=== PATIENT | female | born 1940 | race Caucasian/White ===

== ENCOUNTER → 2023-10-12 09:38 | Outpatient (REF) | payer MEDICARE, OTHER, SELFPAY ==
[2023-10-12 11:57] LABS: ALT (SGPT) 15 U/L (0-35); AST (SGOT) 24 U/L (14-36); Albumin 3.7 g/dl (3.5-5.0); Alkaline Phosphatase 85 U/L (38-126); Blood Urea Nitrogen 19 mg/dl (7-17); Carbon Dioxide 27 mmol/L (22-30); Chloride 106 mmol/L (98-107); Glucose 84 mg/dl (70-99); Magnesium 2.2 mg/dl (1.6-2.3); Potassium 4.1 mmol/L (3.5-5.1); Sodium 138 mmol/L (135-145); Total Bilirubin 0.5 mg/dl (0.2-1.3); Total Protein 7.4 g/dl (6.3-8.2); eGFR > 60.00
[2023-10-12 12:19] LABS: Vitamin D, 25-OH*** 32.4 ng/mL (30-80)
[2023-10-12 14:32] LABS: Vitamin B12 679 pg/ml (239-931)
[2023-10-14 23:29] LABS: Vitamin B6 Results 71.9 nmol/L (20.0-125.0)
== END ==
LOC: OLABN 09:38
PROVIDERS: ATTENDING PHYSICIAN Student in an Organized Health Care Education/Training Program
DX: E78.5 Hyperlipidemia, unspecified (principal); Z79.899 Other long term (current) drug therapy; D51.9 Vitamin B12 deficiency anemia, unspecified; E67.2 Megavitamin-B6 syndrome
CPT/HCPCS: 36415; 80053; 82306; 82607; 83735; 84207

== ENCOUNTER → 2024-11-14 09:46 | Outpatient (REF) | payer MEDICARE, OTHER, SELFPAY ==
[2024-11-14 12:57] LABS: % Basophils 0.5 % (0-2); % Eosinophils 1.6 % (0-6); % Immature Granulocytes 0.3 % (0-0.5); % Lymphocytes 32.7 % (20.5-51.1); % Monocytes 7.5 % (1.7-9.3); % Neutrophils 57.4 % (42.2-75.2); Absolute Eosinophils 0.1 10^3/uL (0-0.7); Absolute Monocytes 0.5 10^3/uL (0.1-0.6); Absolute Neutrophils 3.6 10^3/uL (1.4-6.5); Hematocrit 34.1 % (37.0-47.0); Hemoglobin 10.7 g/dL (12.0-16.0); Mean Corp Hgb Conc. 31.4 g/dL (33.0-37.0); Mean Corpuscular Hgb 29.7 pg (27.0-31.0); Mean Corpuscular Volume 94.7 fL (81.0-99.0); Mean Platelet Volume 10.4 fL (7.4-10.4); Nucleated Red Blood Cells % 0 %; Platelet Count 274 10^3/uL (130-400); Red Cell Dist. Width 13.8 % (11.5-14.5); White Blood Cell Count 6.2 10^3/uL (4.8-10.8)
[2024-11-14 13:24] LABS: ALT (SGPT) 11 U/L (0-35); AST (SGOT) 21 U/L (14-36); Albumin 3.5 g/dl (3.5-5.0); Alkaline Phosphatase 77 U/L (38-126); Blood Urea Nitrogen 14 mg/dl (7-17); Calcium 9.1 mg/dl (8.4-10.2); Carbon Dioxide 29 mmol/L (22-30); Chloride 106 mmol/L (98-107); Glucose 82 mg/dl (70-99); HDL Cholesterol 55 mg/dl; LDL Cholesterol, Calculated 94 mg/dl; Magnesium 2.1 mg/dl (1.6-2.3); Potassium 4.1 mmol/L (3.5-5.1); Sodium 140 mmol/L (135-145); Total Bilirubin 0.3 mg/dl (0.2-1.3); Total Cholesterol 172 mg/dl (50-199); Total Protein 7.1 g/dl (6.3-8.2); Triglyceride 117 mg/dl (10-149); Very Low Density Lipoprotein 23 mg/dl (0-30); eGFR > 60.00
[2024-11-14 13:41] LABS: Vitamin D, 25-OH*** 20.5 ng/mL (30-80)
[2024-11-14 14:50] LABS: Vitamin B12 283 pg/ml (239-931)
== END ==
LOC: OLABN 09:46
PROVIDERS: ATTENDING PHYSICIAN Student in an Organized Health Care Education/Training Program
DX: E78.5 Hyperlipidemia, unspecified (principal); E03.9 Hypothyroidism, unspecified; R05.9 Cough, unspecified; D51.9 Vitamin B12 deficiency anemia, unspecified; E53.1 Pyridoxine deficiency; Z79.899 Other long term (current) drug therapy
CPT/HCPCS: 36415; 80053; 80061; 82306; 82607; 83735; 84207; 85025

== ENCOUNTER → 2025-01-10 09:31 | Outpatient (REF) | payer MEDICARE, OTHER, SELFPAY ==
[2025-01-10 11:59] LABS: Vitamin D, 25-OH*** 46.3 ng/mL (30-80)
== END ==
LOC: OLABN 09:31
PROVIDERS: ATTENDING PHYSICIAN Student in an Organized Health Care Education/Training Program
DX: E55.9 Vitamin D deficiency, unspecified (principal)
CPT/HCPCS: 36415; 82306

== ENCOUNTER 2025-02-18 21:16 | Inpatient (IN) | payer MEDICARE, OTHER, SELFPAY ==
[2025-02-18] VITALS (26 sets, daily range): BP systolic 94–148; BP diastolic 43–74; BMI 23.2; BMI 22.7
[2025-02-18 18:03] LABS: % Basophils 0.2 % (0-2); % Eosinophils 0.6 % (0-6); % Immature Granulocytes 0.2 % (0-0.5); % Lymphocytes 25.2 % (20.5-51.1); % Monocytes 4.7 % (1.7-9.3); % Neutrophils 69.1 % (42.2-75.2); Absolute Eosinophils 0.1 10^3/uL (0-0.7); Absolute Lymphocytes 3.3 10^3/uL (1.2-3.4); Absolute Monocytes 0.6 10^3/uL (0.1-0.6); Absolute Neutrophils 8.9 10^3/uL (1.4-6.5); Hematocrit 36.7 % (37.0-47.0); Hemoglobin 11.8 g/dL (12.0-16.0); Mean Corp Hgb Conc. 32.2 g/dL (33.0-37.0); Mean Corpuscular Hgb 30.5 pg (27.0-31.0); Mean Corpuscular Volume 94.8 fL (81.0-99.0); Nucleated Red Blood Cells % 0 %; Platelet Count 330 10^3/uL (130-400); Red Blood Cell Count 3.87 10^6/uL (4.20-5.40); White Blood Cell Count 12.9 10^3/uL (4.8-10.8)
[2025-02-18] MEDS: NSS 1000 IV ×2 (18:11→23:27)
--- NOTE | 2025-02-18 18:16 | ED.GENMED ---
History of Present Illness
General
Chief Complaint: Blood Pressure Problem
Time Seen by Provider: 02/18/25 17:53
History of Present Illness
History of Present Illness:
84-year-old female with history of hypertension presenting to the emergency department from her nursing facility with acute onset of nausea, vomiting, diarrhea. Patient had a syncopal episode at the nursing facility, witnessed. When patient woke
up, she was vomiting and had diarrhea. Per medics, hypotensive en route, administered 600 cc of fluid. Patient also received 8 mg of Zofran en route. Patient notes some lower abdominal pain. Reports she felt fine prior to onset of symptoms.
Denies significant chest pain or difficulty breathing denies any history of abdominal surgeries. Denies any known fever. Denies additional acute medical complaints
Past History
Past History
ED Past Medical History: HTN and Hypercholesterolemia
ED Past Surgical History: Orthopedic (Right hip replacement)
Social History
Tobacco: Non-smoker
Phy Exam
Physical Exam
Physical Exam:
General: Dry mucous membrane
HEENT: protecting airway
Neck: appears supple
CV: Normal heart rate, regular rhythm
Resp: No accessory muscle use, no increased work of breathing, lungs clear to auscultation bilaterally
Abd: Mild distention with generalized tenderness to lower abdomen
Extremities: No deformities, no swelling, no erythema
Neuro: alert, no focal neurologic deficit
: deferred
Rectal: deferred
Psych: Normal affect
Skin: Intact
Sepsis
Sepsis Screening
Sepsis Assessment: Severe Sepsis
Sepsis Screening: Hypotension
Sepsis Screen
Sepsis Screen: Severe Sepsis
Date: 02/18/25
Time: 19:35
Course
Orders/Labs/Results
Orders:
Orders
02/18/25 17:45
Electrocardiogram (*1) Urgent
Reason for Study: Abdominal Pain
EKG- Treatment ONCE
Straight cath- Treatment ONCE
Urinalysis Reflex To Culture Urgent
Date Specimen was Collected: 02/18/25
Time Specimen was Collected: 17:45
02/18/25 17:48
Complete Blood Count/With Diff Urgent
Comprehensive Metabolic Panel Urgent
Lipase Urgent
02/18/25 17:50
0.9% Sodium Chloride 1000 ml [Nss] 1,000 ml IV BOLUS
02/18/25 17:51
CT Abd/pelvis W Iv Cont Urgent
Comment:
Reason For Exam: lower abd pain, hypotension, diarrhea
02/18/25 17:57
Lactate Level [Lactic Acid] Urgent
Blood Culture Q30M
ALIYA Source: Blood/Venous
Specimen Description:
02/18/25 18:14
Fentanyl Citrate/Pf [Sublimaze] 50 mcg IV NOW STA
02/18/25 19:17
Blood Culture Q30M
ALIYA Source: Blood/Venous
Specimen Description:
C DIFF [C difficile Antigen & Toxins] Urgent
ALIYA Source: Feces/Stool
Specimen Description:
Date Specimen was Collected: 02/18/25
Time Specimen was Collected: 18:52
Stool Culture Urgent
ALIYA Source: Feces/Stool
Specimen Description:
Date Specimen was Collected: 02/18/25
Time Specimen was Collected: 18:52
02/18/25 19:32
Zosyn 4.5 grams IVPB NOW Piperacillin/Tazo 4.5 Gram [Zosyn] 4.5 gram in 100 ml IV NOW
Abnormal Lab Results
02/18/25
17:48
WBC 12.9 H 10^3/uL
(4.8-10.8)
RBC 3.87 L 10^6/uL
(4.20-5.40)
Hgb 11.8 L g/dL
(12.0-16.0)
Hct 36.7 L %
(37.0-47.0)
MCHC 32.2 L g/dL
(33.0-37.0)
Absolute Neuts (auto) 8.9 H 10^3/uL
(1.4-6.5)
Chloride 109 H mmol/L
(98-107)
BUN 22 H mg/dl
(7-17)
Glucose 111 H mg/dl
(70-99)
Total Protein 8.5 H g/dl
(6.3-8.2)
Lipase 391 H U/L
(23-300)
02/18/25 17:48
02/18/25 17:48
Vital Signs
Initial and Last Documented VS:
Initial Vital Signs
Temp Pulse Resp BP Pulse Ox
99.1 F 94 18 112/72 99
02/18/25 17:38 02/18/25 17:38 02/18/25 17:38 02/18/25 17:38 02/18/25 17:38
Last Documented Vital Signs
Temp Pulse Resp BP Pulse Ox
99.1 F 87 16 112/45 99
02/18/25 17:38 02/18/25 19:09 02/18/25 19:09 02/18/25 19:09 02/18/25 19:09
MDM/Problems Addressed
MDM/Problems Addressed:
84-year-old female with history of hypertension presenting to the emergency department for syncopal episode with vomiting, diarrhea, abdominal pain. Vital signs on arrival significant for hypotension.
On exam patient is in no acute distress, is alert, however is uncomfortable secondary to pain. Generalized tenderness to the abdomen with concern for acute intra-abdominal process such as diverticulitis versus colitis such as (C. difficile colitis
with very foul smelling stool), versus bowel obstruction with overflow incontinence. Suspect that syncopal episode was from hypotension, possible vasovagal etiology. For hypotension, starting IV fluids. Will obtain laboratory analysis and CT
imaging of the abdomen. EKG obtained, nonischemic, no arrhythmia. Patient currently doubt chest pain or concern for ACS.
19:30 - Labs show mild leukocytosis, however normal lactic acid. However in the setting of hypotension with leukocytosis, continued concern for septic process. Continuing IV fluids, fluid responsive. CT is concerning for stercoral colitis with
rectal impaction. There is also mention of pancolitis. Again in the setting of concern for sepsis and infectious source, starting patient on broad-spectrum antibiotics. C. difficile pending. Holding off on any disimpactions, patient is stooling
frequently. Plan for admission .
*Pulse Oximetry
SaO2: 99
Oxygen Mode of Delivery: Room air
*Critical Care Note
Total Time (30-74mins, 75-104mins- exclusive of procedures): 37
comment:
The high probability of a clinically significant, sudden or life threatening deterioration of the gastrointestinal system(s), severe sepsis required my full and direct attention, intervention and personal management. The aggregate critical care time
was 37 minutes. This time is in addition to time spent performing reported procedures but includes the following:
[x] Data Review and interpretation
[x] Patient assessment and monitoring of vital signs
[x] Documentation
[x] Medication orders and management
ED Attending Note
-
Portions of this chart may have been created with voice recognition software.� Occasional wrong word or��sound alike� substitutions may have occurred due to the inherent limitations of voice recognition software.
Discharge Plan
Departure
Prescriptions:
No Action
latanoprost 1 DROP drops
1 drp LEFT EYE HS
lisinopril 10 MG tablet
10 mg PO DAILY
multivitamin with folic acid [Tab-A-Gordon] 1 TABLET tablet
1 tab PO DAILY
acetaminophen 325 MG tablet
650 mg PO Q4HPRN PRN (Reason: mild pain/BABCOCK/temp> 100.4F) 0RF
lidocaine 4 % Adhesive Patch,Medicated
1 patch TOPICAL DAILYPRN PRN (Reason: right thigh)
lidocaine 4 % Cream
1 applic TOPICAL Q6HPRN PRN (Reason: b/l knees)
acetaminophen [Tylenol Extra Strength] 500 mg Tablet
1,000 mg PO DAILY
magnesium hydroxide [Milk of Magnesia] 400 mg/5 mL Suspension
2,400 mg PO HSPRN PRN (Reason: constipation)
bisacodyl [Dulcolax (bisacodyl)] 10 mg Suppository
10 mg WA [id number] PRN (Reason: if no bm aftr mom)
gabapentin 300 mg Capsule
300 mg PO BID
Eliquis 2.5 mg Tablet
2.5 mg PO BID
Referrals:
UNKNOWN - PT DOES,NOT KNOW [Family Provider]
Interventions
Interventions:
*Risk Screen - Suicide Last Done: 02/18/25 18:10
*General Assessment Last Done: 02/18/25 17:34
*Neglect/Abuse Screening Last Done: 02/18/25 17:34
*ED- Fall Risk Assessment Last Done: 02/18/25 17:34
*ED COVID-19 Vaccine History Last Done: 02/18/25 17:34
ED- Cardiac Assessment Last Done: 02/18/25 17:45
ED- Neurological Assessment Last Done: 02/18/25 17:45
ED- Pulmonary Assessment Last Done: 02/18/25 17:45
Discharge Date and Time
Print Language: SWEDISH
[2025-02-18 18:20] LABS: ALT (SGPT) 13 U/L (0-35); AST (SGOT) 24 U/L (14-36); Albumin 4.2 g/dl (3.5-5.0); Alkaline Phosphatase 86 U/L (38-126); Blood Urea Nitrogen 22 mg/dl (7-17); Calcium 9.6 mg/dl (8.4-10.2); Carbon Dioxide 23 mmol/L (22-30); Chloride 109 mmol/L (98-107); Estimated Creatinine Clearance 44 ml/min; Glucose 111 mg/dl (70-99); Lipase 391 U/L (23-300); Potassium 4.2 mmol/L (3.5-5.1); Sodium 143 mmol/L (135-145); Total Bilirubin 0.7 mg/dl (0.2-1.3); Total Protein 8.5 g/dl (6.3-8.2); eGFR > 60.00
[2025-02-18 18:21] LABS: Lactic Acid 1.8 mmol/L (0.7-2.0)
[2025-02-18] MEDS: SUBLIMAZE 50 MCG IV (19:10)
[2025-02-18] MEDS: ZOSYN 100 IV (20:06)
--- NOTE | 2025-02-18 20:34 | HPS.HSE ---
Family Physician
-
Family Physician: NOT KNOW UNKNOWN - PT DOES
Chief Complaint
-
Low blood pressure
History of Present Illness
This is a 84-year-old with past medical history of hypertension, dementia [facility] with abrupt episode of nausea vomiting and diarrhea as well as syncopal episode.
According to patient, she woke up this a.m. with abrupt onset of vomiting and then she developed diarrhea as well. EMS was called because the patient had a weakness syncopal episode when she vomited. EMS reported that she was hypotensive and was
given 600 cc of saline en route. She was also given Zofran.
Patient had a picnic on Thursday. She had to a large amount of vegetables and hamburger which she was eating outside with a group of water pen[facility]entiary members. She had some additional hamburgers yesterday which may have been leftover from that
prior picnic.
She denied having any prior symptoms until waking up today. She denies having any abdominal pain nausea or vomiting prior to this episode. She denies any fevers or chills. She has no recent antibiotic use for any reason. She has no recent travels
Notable for hospitalizations or sick contacts. She denies any prior history of abdominal surgeries constipation or diarrhea.
In the emergency department patient's blood pressure was about 100/50, temp was 99.1, she was satting 98% on room air. ECG with normal sinus rhythm no acute ST-T wave changes.
She has a white count of 12.9, hemoglobin and platelet counts were normal. Electrolytes were normal. BUN/creatinine were normal. LFTs were unremarkable. Lipase was slightly elevated at 391.
CT of the abdomen pelvis shows stercoral colitis with pancolitis. There is rectal fecal impaction.
Medical History
Past Medical History
Past Medical History: Reports HTN and Other
Past Surgical History: Reports Other
Social History
Tobacco: Non-smoker
Alcohol: None
Drug: None
Living: Halfway
Family History
Family History: Not pertinent
Allergies / Home Medications
Allergies reflects when Allergies were last updated in [facility].
Home Medications with original date entered in [employer]
Allergy/Medication List:
Allergies
Allergy/AdvReac Type Severity Reaction Status Date / Time
No Known Allergies Allergy Verified 02/18/25 18:07
Home Medications
latanoprost 0.005 % eye drops 1 drp LEFT EYE HS glaucoma 09/19/20
lisinopril 10 mg tablet 10 mg PO DAILY Blood pressure 09/19/20
multivitamin with folic acid 400 mcg tablet (Tab-A-Gordon) 1 tab PO DAILY Supplement 09/19/20
acetaminophen 325 mg tablet 650 mg (2 x 325 mg) PO Q4HPRN PRN mild pain/BABCOCK/temp> 100.4F 09/24/20
acetaminophen 500 mg tablet (Tylenol Extra Strength) 1,000 mg PO DAILY 02/18/25
apixaban 2.5 mg tablet (Eliquis) 2.5 mg PO BID 02/18/25
bisacodyl 10 mg rectal suppository (Dulcolax (bisacodyl)) 10 mg WV [id number] PRN if no bm aftr mom 02/18/25
gabapentin 300 mg capsule 300 mg PO BID 02/18/25
lidocaine 4 % topical cream 1 applic topical Q6HPRN PRN b/l knees 02/18/25
lidocaine 4 % topical patch 1 patch topical DAILYPRN PRN right thigh 02/18/25
magnesium hydroxide 400 mg/5 mL oral suspension (Milk of Magnesia) 2,400 mg PO HSPRN PRN constipation 02/18/25
Review of Systems
-
History Source: Family
Constitutional: Reports No Symptoms
EENT: Reports No Symptoms
Respiratory: Reports No Symptoms
Cardiac: Reports No Symptoms
Abdomen/GI: Reports Nausea, Vomiting and Diarrhea
: Reports No Symptoms
Musculoskeletal: Reports No Symptoms
Skin: Reports No Symptoms
Neurological: Reports No Symptoms
Endocrine: Reports No Symptoms
Hematologic/Lymphatic: Reports No Symptoms
Psych: Reports No Symptoms
Physical Exam
Vital Signs
Vital Signs
Temp Pulse Resp BP Pulse Ox
99.1 F 87 23 106/55 96
02/18/25 17:38 02/18/25 20:15 02/18/25 20:15 02/18/25 20:15 02/18/25 20:00
Physical Exam
General: Well Developed, Well Nourished and No Apparent Distress
HEENT: NormoCephalic, Moist mucous membranes and Atraumatic
Respiratory: Clear
Cardiac: S1/S2 and Regular Rhythm; No Murmur or Rub
GI: Soft, Non Tender, Non Distended and Normal Bowel Sounds
Rectal: Deferred by Provider
Musculoskeletal: No Clubbing, No Cyanosis and No Edema
Skin: No Rash
Neuro: Awake, Alert, Oriented (Oriented to person only) and Nonfocal/grossly intact
Hematologic/Lymphatic: No Lymphadenopathy
Laboratory Results
-
02/18/25 17:48
02/18/25 17:48
Laboratory Results
Lactic Acid 1.8 mmol/L (0.7-2.0) 02/18/25 17:57
Total Bilirubin 0.7 mg/dl (0.2-1.3) 02/18/25 17:48
AST 24 U/L (14-36) 02/18/25 17:48
ALT 13 U/L (0-35) 02/18/25 17:48
Alkaline Phosphatase 86 U/L (38-126) 02/18/25 17:48
Lipase 391 U/L (23-300) H 02/18/25 17:48
Data Reviewed
-
CT Scan: Report Reviewed by me
Medical Tests (Nuc Med, Echo, EKG etc): Image Personally Visualized and interpreted
Lab Data: Labs Reviewed by me
Old Records: Reviewed
Impression/Plan
-
IMPRESSION:
84-year-old with history of dementia, hypertension now with acute onset of nausea vomiting diarrhea with associated syncopal episode, relative hypotension in the emergency department, leukocytosis, CT scan consistent with colitis/pancolitis and
stercoral colitis. She still having diarrhea while in the emergency department.'s
PLAN:
Colitis�enterocolitis versus foodborne illness versus C. difficile. Hypotensive but stable at this time, afebrile with mild leukocytosis.
-Will admit to telemetry given episode of witnessed syncope
-Advance diet as tolerated
-Stool studies have been sent, suspect possibility of C. difficile given penitentiary residency
-IV cefepime/Flagyl for now pending results of CT
-Continue IV fluids
-Antiemetics and pain control as needed
Syncopal episode -suspect vasovagal versus hypovolemic given persistent low blood pressure
-Continue crystalloid resuscitation
-Telemetry as above
-Orthostatic vital signs
-Hold lisinopril for now
DVT prophylaxis�apixaban 2.5 bid
CODE STATUS�full code
--- NOTE | 2025-02-18 21:39 | EDRN ---
Urine specimen: UA and urine culture ordered part of infection order set. 2 attempts made by RN with assistance by information technology officer to obtain urine specimen via straight cath but was unsuccessful. Every time patient voids she has a loose BM. RN notified ED
provider, MD Alvarez. ED provider reports it is not mandatory at this time. Will treat patient for colitis
[2025-02-18] MEDS: STERILE WATER FOR INJECTION 10 ML IV (23:27)
[2025-02-18] MEDS: TYLENOL 650 MG PO (23:28)
[2025-02-18] MEDS: MAXIPIME 1000 MG IV (23:28)
[2025-02-18] MEDS: XALATAN OPHTHALMIC SOLUTION 1 DROP LEFT EYE (23:31)
[2025-02-19] VITALS (7 sets, daily range): BP systolic 104–133; BP diastolic 49–88; PULSE 84–99
[2025-02-19] MEDS: FLAGYL 500 MG 100 IV ×3 (05:26→22:28)
[2025-02-19] MEDS: STERILE WATER FOR INJECTION 10 ML IV ×4 (05:26→23:46)
[2025-02-19] MEDS: MAXIPIME 1000 MG IV ×4 (05:26→23:46)
[2025-02-19 05:54] LABS: Hematocrit 31.8 % (37.0-47.0); Hemoglobin 10.3 g/dL (12.0-16.0); Mean Corp Hgb Conc. 32.4 g/dL (33.0-37.0); Mean Corpuscular Hgb 30.4 pg (27.0-31.0); Mean Corpuscular Volume 93.8 fL (81.0-99.0); Platelet Count 228 10^3/uL (130-400); Red Blood Cell Count 3.39 10^6/uL (4.20-5.40); White Blood Cell Count 11.8 10^3/uL (4.8-10.8)
[2025-02-19 06:22] LABS: ALT (SGPT) 13 U/L (0-35); AST (SGOT) 22 U/L (14-36); Albumin 3.4 g/dl (3.5-5.0); Alkaline Phosphatase 60 U/L (38-126); Blood Urea Nitrogen 23 mg/dl (7-17); Calcium 8.5 mg/dl (8.4-10.2); Carbon Dioxide 19 mmol/L (22-30); Chloride 115 mmol/L (98-107); Direct Bilirubin 0.4 mg/dl (0.0-0.4); Estimated Creatinine Clearance 44 ml/min; Glucose 101 mg/dl (70-99); Lipase 87 U/L (23-300); Potassium 4.1 mmol/L (3.5-5.1); Sodium 142 mmol/L (135-145); Total Bilirubin 0.6 mg/dl (0.2-1.3); Total Protein 6.6 g/dl (6.3-8.2); eGFR > 60.00
[2025-02-19] MEDS: ELIQUIS 2.5 MG PO ×2 (08:54→20:31)
[2025-02-19] MEDS: NSS 1000 IV (08:54)
[2025-02-19] MEDS: NEURONTIN 300 MG PO ×2 (08:54→20:31)
--- NOTE | 2025-02-19 11:03 | W.PN.HOSP.TC ---
Today's Communication/Plan
-
GI consult. Bowel regimen. Antibiotics.
Assessment / Plan
Assessment / Plan
Physical exam:
General: Acutely ill
HEENT: Normocephalic, Atraumatic and Moist Mucous Membranes
Respiratory: Clear to Auscultation; Negative Wheezes, Rales or Rhonchi
Cardiac: Regular Rhythm and S1/S2
GI: Soft, Nontender and distended
Musculoskeletal: No Clubbing, No Cyanosis and No Edema
Neuro: Awake, Alert and Oriented, no neurological deficit, cognitive deficits
Psych: Calm
A/P:
Stercoral colitis/Diarrhea-overflow vs rule out infectious etiology:
Bowel regimen
Antibiotics
C. difficile negative
Rest of stool studies pending
Seen CT scan of the abdomen
GI consult-discussed with GI in person today
Discussed with daughter at bedside today
Repeat x-ray of the abdomen tomorrow
Syncope:
On IV fluid-decrease rate today and stop in a.m. if continues to tolerate diet and stable
Check orthostasis
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
Hypertension:
Holding antihypertensive medications due to hypotension likely from GI losses and can resume over the next 24 hours if stable
History of DVT:
On Eliquis (typically we do not need dose reduction for this indication but she has been on low dose anyway so we will keep for now and reevaluate)
Dementia:
Monitor mental status and behavior
DVT prophylaxis:
Eliquis
CODE STATUS:
Full code
Anticipated Discharge: 24 - 48 hours
Subjective/Interval History
-
Date of Service: February 19, 2025
Patient feels better overall today. No abdominal pain or vomiting. Tolerating diet. Afebrile
Objective Data
-
Labs:
Laboratory Results
02/19/25
04:59
WBC 11.8 H
Hgb 10.3 L
Hct 31.8 L
Plt Count 228 D
Sodium 142
Potassium 4.1
Chloride 115 H
Carbon Dioxide 19 L
BUN 23 H
Creatinine 0.9
Glucose 101 H
Calcium 8.5
Total Bilirubin 0.6
AST 22
ALT 13
Alkaline Phosphatase 60
Vital Signs:
Vital Signs
Temp Pulse Resp BP Pulse Ox
98.8 F 85 18 104/88 96
02/19/25 07:10 02/19/25 07:10 02/19/25 07:10 02/19/25 07:10 02/19/25 07:10
--- NOTE | 2025-02-19 12:41 | CON.GI ---
Consultation
-
Date/Time Consultation Requested: 02/18/2025
Date/Time Consultation Performed: 02/19/2025
Requesting Provider: hospitalist
Performing Provider: Rico CARABALLO
Reason for Consultation: Stercoral colitis
Medical History
Chief Complaint / HPI
Chief Complaint: Syncope/nausea/vomiting/diarrhea
History of Present Illness:
84-year-old female with below mentioned past medical history brought into the emergency room from long term after an episode of nausea/vomiting/diarrhea with syncopal episode. EMS was called and because patient had an episode of syncope after
vomiting. She was noted to be hypotensive and IV fluids were given. Patient had a picnic on Thursday with a group of other long term members. He ate hamburger/vegetable on that day. No other sick contacts.
In ED WBC 12.9. Hb/platelets normal. Electrolytes normal. Liver tests normal. Lipase mildly elevated at 391.
CT abdomen/pelvis-- Acute stercoral colitis and fecal impaction. Mild to moderate pancolitis. Colonic diverticulosis
Past Medical History
Past Medical History: HTN and Other (Dementia)
Past Surgical History: Other (Hip replacement)
Social History
Tobacco: Non-Smoker
Allergies / Home Medications
Allergy/AdvReac Type Severity Reaction Status Date / Time
No Known Allergies Allergy Verified 02/18/25 18:07
�Medication �Instructions �Recorded
latanoprost 0.005 % eye drops 1 drp LEFT EYE HS glaucoma 09/19/20
lisinopril 10 mg tablet 10 mg PO DAILY Blood pressure 09/19/20
multivitamin with folic acid 400 1 tab PO DAILY Supplement 09/19/20
mcg tablet (Tab-A-Gordon)
acetaminophen 325 mg tablet 650 mg (2 x 325 mg) PO Q4HPRN PRN 09/24/20
mild pain/BABCOCK/temp> 100.4F
acetaminophen 500 mg tablet 1,000 mg PO DAILY 02/18/25
(Tylenol Extra Strength)
apixaban 2.5 mg tablet (Eliquis) 2.5 mg PO BID 02/18/25
bisacodyl 10 mg rectal suppository [address] [id number] PRN if no bm aftr 02/18/25
(Dulcolax (bisacodyl)) mom
gabapentin 300 mg capsule 300 mg PO BID 02/18/25
lidocaine 4 % topical cream 1 applic topical Q6HPRN PRN b/l 02/18/25
knees
lidocaine 4 % topical patch 1 patch topical DAILYPRN PRN right 02/18/25
thigh
magnesium hydroxide 400 mg/5 mL 2,400 mg PO HSPRN PRN constipation 02/18/25
oral suspension (Milk of Magnesia)
Review of Systems
-
All other systems: A 12 pt ROS was Negative except as stated above in HPI
Vital Signs
Temp Pulse Resp BP Pulse Ox
97.8 F 86 16 108/53 96
02/19/25 11:29 02/19/25 11:29 02/19/25 11:29 02/19/25 11:29 02/19/25 11:29
Physical Exam
Exam
General: No Apparent Distress
Respiratory: Clear
GI: Soft, Non Tender and Non Distended
Neuro: Awake, Alert and Oriented
Results
WBC 11.8 10^3/uL (4.8-10.8) H 02/19/25 04:59
Hgb 10.3 g/dL (12.0-16.0) L 02/19/25 04:59
Hct 31.8 % (37.0-47.0) L 02/19/25 04:59
MCV 93.8 fL (81.0-99.0) 02/19/25 04:59
Plt Count 228 10^3/uL (130-400) D 02/19/25 04:59
Absolute Neuts (auto) 8.9 10^3/uL (1.4-6.5) H 02/18/25 17:48
Sodium 142 mmol/L (135-145) 02/19/25 04:59
Potassium 4.1 mmol/L (3.5-5.1) 02/19/25 04:59
Chloride 115 mmol/L (98-107) H 02/19/25 04:59
Carbon Dioxide 19 mmol/L (22-30) L 02/19/25 04:59
BUN 23 mg/dl (7-17) H 02/19/25 04:59
Creatinine 0.9 mg/dL (0.6-1.0) 02/19/25 04:59
Calcium 8.5 mg/dl (8.4-10.2) 02/19/25 04:59
Total Bilirubin 0.6 mg/dl (0.2-1.3) 02/19/25 04:59
AST 22 U/L (14-36) 02/19/25 04:59
ALT 13 U/L (0-35) 02/19/25 04:59
Alkaline Phosphatase 60 U/L (38-126) 02/19/25 04:59
Lipase 87 U/L (23-300) 02/19/25 04:59
Diagnostic Image Results:
CT abd/ pel with IV cont 02/18/2025
IMPRESSION:
1. ACUTE STERCORAL COLITIS and FECAL IMPACTION in the RECTUM.
2. MILD to MODERATE ACUTE PANCOLITIS (likely infectious in etiology).
3. Mild colonic diverticulosis.
4. Severe calcific atherosclerotic plaque in the abdominal aorta, renal, and iliac arteries.
5. 5.3 cm simple right ovarian cyst.
6. Mild intrahepatic biliary dilatation.
7. Moderate-sized paraesophageal hiatal hernia.
8. 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
9. 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
Prior GI Procedures:
EGD:
Colonoscopy: 12/13/2013-
Impression: - The procedure was aborted due to the extreme
difficulty of the procedure, multiple diverticula in the
colon, significant looping and a tortuous colon.
- Severe diverticulosis in the sigmoid colon. There was
narrowing of the colon in association with the
diverticular opening.
Virtual CT 01/24/2014
Impression:
Two polyps identified.
There is a 6.1-mm sessile polyp on a fold in the distal ascending colon.
There is a 6.4-mm sessile polyp on a fold in the distal descending colon.
Assessment / Plan
-
84-year-old female with history of dementia brought in following an episode of nausea/vomiting/diarrhea at the long term with syncopal episode.labs mild leucocytosis CT imaging performed in ED showing stercoral coral colitis with rectal
impaction. Mild to moderate pancolitis. Patient had a picnic on Thursday and ate hamburger/vegetables with group of other members in the long term. Last colonoscopy in the system 2013 details above. Patient underwent virtual CT after
colonoscopy and was noted to have polyps. Patient/patient's family members cannot recall repeat colonoscopy to remove polyp at that time. Currently feeling better. Denies any abdominal pain/nausea/vomiting. Tolerating diet. Patient had loose
stools yesterday. No BMs today
-- Nausea/vomiting/diarrhea-possible gastroenteritis versus food poisoning vs overflow diarrhea etc.
-- Stercoral colitis/fecal impaction/pancolitis noted on CT imaging
-- hx of colon polyps -incomplete colonoscopy 2013. Unable to recall colonoscopy after virtual CT showing colon polyps
-- Dementia
plan
With stercoral colitis/fecal impaction recommend milk and molasses enema ( patient does not want manual disimpaction )
repeat abd x ray in am
Will check stool for infection . c.diff negative
Currently tolerating diet without any nausea or vomiting
IV hydration as per medical team
Patient requires outpatient GI follow-up to discuss about colon polyps noted in last virtual CT 2013. Patient/family cannot recall.
Total Time Spent with Patient (in minutes): 55
-
-
Thank you for consultation and allowing me to participate in the patient's care. Please call the phone triage specialist GI physician during the after hours with any questions or concerns.
--- NOTE | 2025-02-19 13:59 | CM ---
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 She ambulates with a RW, Assists with ADL's. Discharge POC: Return to [facility] for resumption of LTC.
[2025-02-19] MEDS: XALATAN OPHTHALMIC SOLUTION 1 DROP LEFT EYE (22:29)
[2025-02-20] MEDS: NSS 1000 IV ×2 (02:19→13:03)
[2025-02-20 03:00] VITALS: BP 125/52
[2025-02-20] MEDS: MAXIPIME 1000 MG IV ×3 (05:52→17:48)
[2025-02-20] MEDS: STERILE WATER FOR INJECTION 10 ML IV ×3 (05:54→17:48)
[2025-02-20] MEDS: FLAGYL 500 MG 100 IV ×2 (05:54→13:02)
[2025-02-20 06:00] VITALS: BMI 22.3
[2025-02-20 07:10] VITALS: BP 123/55
[2025-02-20 07:11] LABS: % Basophils 0.1 % (0-2); % Eosinophils 0.7 % (0-6); % Immature Granulocytes 0.4 % (0-0.5); % Lymphocytes 15.4 % (20.5-51.1); % Monocytes 6.5 % (1.7-9.3); % Neutrophils 76.9 % (42.2-75.2); Absolute Eosinophils 0.1 10^3/uL (0-0.7); Absolute Lymphocytes 1.5 10^3/uL (1.2-3.4); Absolute Monocytes 0.6 10^3/uL (0.1-0.6); Absolute Neutrophils 7.3 10^3/uL (1.4-6.5); Hematocrit 28.5 % (37.0-47.0); Hemoglobin 9.1 g/dL (12.0-16.0); Mean Corp Hgb Conc. 31.9 g/dL (33.0-37.0); Mean Corpuscular Hgb 30.1 pg (27.0-31.0); Mean Corpuscular Volume 94.4 fL (81.0-99.0); Mean Platelet Volume 9.9 fL (7.4-10.4); Nucleated Red Blood Cells % 0 %; Platelet Count 183 10^3/uL (130-400); Red Blood Cell Count 3.02 10^6/uL (4.20-5.40); Red Cell Dist. Width 14.2 % (11.5-14.5); White Blood Cell Count 9.4 10^3/uL (4.8-10.8)
[2025-02-20 07:41] LABS: Blood Urea Nitrogen 13 mg/dl (7-17); Calcium 8.3 mg/dl (8.4-10.2); Carbon Dioxide 22 mmol/L (22-30); Chloride 112 mmol/L (98-107); Estimated Creatinine Clearance 57 ml/min; Glucose 88 mg/dl (70-99); Potassium 3.5 mmol/L (3.5-5.1); Sodium 141 mmol/L (135-145); eGFR > 60.00
[2025-02-20] MEDS: ELIQUIS 2.5 MG PO (09:11)
[2025-02-20] MEDS: NEURONTIN 300 MG PO (09:12)
--- NOTE | 2025-02-20 10:28 | W.PN.HOSP.TC ---
Today's Communication/Plan
-
Abdominal x-ray
PT eval
DC planning
Assessment / Plan
Assessment / Plan
A/P:
Acute onset of nausea vomiting
Quick improvement in her symptomatology
Clinical concern of foodborne etiology versus acute gastroenteritis of infectious etiology
Patient currently tolerating diet with good appetite and no GI symptoms
Acute enteritis/colitis possibly infectious in etiology
Improved GI symptoms.
Improved white count. Difficult exclude bacterial so we will continue with antibiotics
Stercoral colitis with possible fecal impaction based on the CT imaging.
Continue with antibiotics
Had enema with minimal output.
Continue bowel regimen per GI
Abdominal x-ray today
Syncope:
With associated GI symptoms suspicious for vasovagal
EKG without any acute ST-T changes
No recurrent syncope
Denies any dizziness
Negative orthostasis yesterday
PT OT eval
Hypertension:
Holding antihypertensive medications due to hypotension likely from GI losses and can resume as needed
History of DVT:
On Eliquis (typically we do not need dose reduction for this indication but she has been on low dose anyway so we will keep for now and reevaluate)
Dementia:
Monitor mental status and behavior
DVT prophylaxis:
Eliquis
CODE STATUS:
Full code
Discussed with daughter at bedside
Follow abdominal x-ray and have a DC plan
Anticipated Discharge: Today
Subjective/Interval History
-
Date of Service: February 20, 2025
Patient without further GI symptoms.
Resolved nausea and vomiting. No abdominal pain today.
Good appetite and almost finishing up with her breakfast. No diarrhea. Denies any diarrhea with her upper GI symptoms.
Usual bowel regimen is like bowel movement in couple of days which is solid. 2 weeks ago she had a bowel movement followed by some diarrhea.
Takes as needed medication for constipation in the care home.
Denies fever chills.
Denies shortness of breath or chest pain.
Objective Data
-
Labs:
Laboratory Results
02/20/25
06:58
WBC 9.4
Hgb 9.1 L
Hct 28.5 L
Plt Count 183
Sodium 141
Potassium 3.5
Chloride 112 H
Carbon Dioxide 22
BUN 13
Creatinine 0.7
Glucose 88
Calcium 8.3 L
Vital Signs:
Vital Signs
Temp Pulse Resp BP Pulse Ox
98.5 F 72 16 123/55 97
02/20/25 07:10 02/20/25 07:10 02/20/25 07:10 02/20/25 07:10 02/20/25 07:10
I&O
02/19/25 02/20/25 02/21/25
06:59 06:59 06:59
Intake Total 240 / 240
Balance 240 / 240
Physical Exam
-
Respiratory: Non Labored Respirations; Negative Accessory Resp Muscle Use
Cardiac: Regular Rhythm and S1/S2
GI: Soft, Nontender, Nondistended and Normal Bowel Sounds
Psych: Calm
Data Reviewed
-
Labs: Labs Reviewed by me
--- NOTE | 2025-02-20 11:18 | W.PN.GI.CBS2 ---
Addendum entered and electronically signed by Patience Gupta MD 02/20/25 13:14:
Abdominal x-ray today�previously noted impaction resolved.
advise to avoid constipation. Daily bowel regimen-Metamucil/MiraLAX on discharge
Outpatient GI follow-up. Will sign off
Original Note:
Today's Communication / Plan
-
abdominal X ray
Assessment / Plan
-
84-year-old female with history of dementia brought in following an episode of nausea/vomiting/diarrhea at the residential with syncopal episode.labs mild leucocytosis CT imaging performed in ED showing stercoral coral colitis with rectal
impaction. Mild to moderate pancolitis. Patient had a picnic on Thursday and ate hamburger/vegetables with group of other members in the residential. Last colonoscopy in the system 2013 details above. Patient underwent virtual CT after
colonoscopy and was noted to have polyps. Patient/patient's family members cannot recall repeat colonoscopy to remove polyp at that time. Currently feeling better. Denies any abdominal pain/nausea/vomiting. Tolerating diet. Patient had loose
stools yesterday. No BMs today
-- Nausea/vomiting/diarrhea-possible gastroenteritis versus food poisoning vs overflow diarrhea etc.
-- Stercoral colitis/fecal impaction/pancolitis noted on CT imaging
-- hx of colon polyps -incomplete colonoscopy 2013. Unable to recall colonoscopy after virtual CT showing colon polyps
-- Dementia
plan
With stercoral colitis/fecal impaction recommend milk and molasses enema yesterday. Unable to hold well as per RN.No BM or stool after the enema except blood tinge mucous material
Currently denies any GI symptoms and tolerating diet
Patient doesn't want rectal exam or disimpaction - repeat abd x ray today. further mx of constipation based on X ray
Will check stool for infection . c.diff negative . culture pending
Currently tolerating diet without any nausea or vomiting
Patient requires outpatient GI follow-up to discuss about colon polyps noted in last virtual CT 2013. Patient/family cannot recall.
Total Time Spent with Patient (in minutes): 35
Subjective
Subjective
Date of Service: February 20, 2025
Denies any abdominal pain/nausea/vomiting. No BM. Attempted milk and molasses enema by RN yesterday. No stool came except blood-tinged mucoid discharge.
Objective
Data Reviewed
Laboratory Data:
Laboratory Results
02/20/25 06:58
02/20/25 06:58
Laboratory Results
Total Bilirubin 0.6 mg/dl (0.2-1.3) 02/19/25 04:59
AST 22 U/L (14-36) 02/19/25 04:59
ALT 13 U/L (0-35) 02/19/25 04:59
Alkaline Phosphatase 60 U/L (38-126) 02/19/25 04:59
Lipase 87 U/L (23-300) 02/19/25 04:59
Vital Signs and I&O:
Vital Signs
Temp Pulse Resp BP Pulse Ox
98.5 F 72 16 123/55 97
02/20/25 07:10 02/20/25 07:10 02/20/25 07:10 02/20/25 07:10 02/20/25 07:10
I&O
02/19/25 02/20/25 02/21/25
06:59 06:59 06:59
Intake Total 240 / 240
Balance 240 / 240
Physical Exam
Physical Exam
GI: Soft, Non Distended and Non Tender
Rectal: Other (Deferred)
[2025-02-20 11:40] VITALS: BP 124/50
--- NOTE | 2025-02-20 13:00 | CM ---
Addendum entered by Tien Luna 02/20/25 15:33:
global supply chain director time 6:30 p.m.
Both pt, her daughter and [facility] cash management coordinator are aware.
Addendum entered by Tien Luna 02/20/25 14:36:
Discharge order noted.
CM net with pt and daughter Leatha at bedside. Both pt and her daughter are aware of discharge and they expressed their agreement. Pt stated she cannot wait to get back to her home at [facility]. IMM reviewed, placed on chart, pt has a copy.
A referral to [facility] made, spoke to cash management coordinator Amrit and she confirmed that pt is accepted for admission today.
[facility] to arrange ambulance transport, BLS. [facility] completed and left with [facility].
[facility] nursing updated report: [phone]
Discharge instructions updated fax: [phone].
D/C plan: return back to [facility] for a LTC
Original Note:
CM following re: discharge planning.
Reviewed pt's chart, met with pt.
Per chart review, pt is a [facility] care resident at [facility], on Medicaid 15 day bed hold and pt will be accepted back for admission to [facility] when medically stable.
[facility] nursing [phone]
Discharge instructions fax: [phone]
D/C plan: return back to [facility] for a LTC when medically stable.
CM will follow with discharge plan updates as hospitalization progresses
--- NOTE | 2025-02-20 14:17 | W.DCSUMMARY ---
Discharge Summary
Discharge Data
Date of Admission: 02/18/25
Date of Discharge: 02/20/25
-
Pending Results: No
Hospital Course
Primary diagnosis:
Stercoral colitis with fecal impaction
Acute enteritis/colitis
Syncope
Secondary diagnosis:
Hypertension essential
History of DVT on Eliquis
History of dementia
Hospital course:
Patient sent in to ER from longterm after she had episode of nausea vomiting with syncopal episode. She had episode of syncope after vomiting. She was noted to be hypotensive. Suspect syncope possible sec to vasovagal response to vomiting vs
volume deficit. She had a picnic on Thursday with a group of for the longterm members. She had a hamburger and a vegetable that day. CT showed acute stercoral colitis with fecal impaction in the rectum but there was also mild to moderate
acute pancolitis. Unclear if colitis was infectious in etiology. There was elevation of white which normalized with antibiotic treatment
She declined manual disimpaction. She was treated with laxative regimen and follow-up abdominal x-ray shows resolution of constipation.
GI saw the patient and felt possible gastroenteritis versus food poisoning versus overflow diarrhea. Advised to keep an regular bowel regimen and finish the course of antibiotics. Stool check for C. difficile was negative, routine stool bacterial
cultures were pending at the time of discharge. Blood cultures were negative.
She was tolerating a diet without nausea vomiting or abdominal pain prior to discharge.
Consultants on board:
Gastroenterology-Mateo Douglass
Discharge Plan
-
Patient Disposition: Care Home/SNF
Discharge Diagnosis/Procedures: Stercoral colitis with fecal impaction
Diet: Regular
Activity: As tolerated
Driving Restrictions: As prior to admission
Bathing Restrictions: None
Referrals:
UNKNOWN - PT DOES,NOT KNOW [Family Provider] - in less than 1 week
Prescriptions:
New
amoxicillin-pot clavulanate 875-125 mg tablet
1 tab PO BID Qty: 10 0RF
psyllium husk [Metamucil] 0.4 gram capsule
0.4 g PO DAILY Qty: 1 0RF
polyethylene glycol 3350 [Mix-In Laxative] 17 gram powder in packet
17 g PO DAILY Qty: 1 0RF
Continued
latanoprost 1 DROP drops
1 drp LEFT EYE HS
lisinopril 10 MG tablet
10 mg PO DAILY
multivitamin with folic acid [Tab-A-Gordon] 1 TABLET tablet
1 tab PO DAILY
acetaminophen 325 MG tablet
650 mg PO Q4HPRN PRN (Reason: mild pain/BABCOCK/temp> 100.4F) 0RF
lidocaine 4 % Adhesive Patch,Medicated
1 patch TOPICAL DAILYPRN PRN (Reason: right thigh)
lidocaine 4 % Cream
1 applic TOPICAL Q6HPRN PRN (Reason: b/l knees)
acetaminophen [Tylenol Extra Strength] 500 mg Tablet
1,000 mg PO DAILY
magnesium hydroxide [Milk of Magnesia] 400 mg/5 mL Suspension
2,400 mg PO HSPRN PRN (Reason: constipation)
bisacodyl [Dulcolax (bisacodyl)] 10 mg Suppository
10 mg CA [id number] PRN (Reason: if no bm aftr mom)
gabapentin 300 mg Capsule
300 mg PO BID
Eliquis 2.5 mg Tablet
2.5 mg PO BID
Discharge Orders:
Discharge Patient (As Directed); Ordered 02/20/25
Ordered By: Sarmad Rick
Discharge Date and Time
Print Language: MACEDONIAN
[2025-02-20 15:00] VITALS: BP 132/60
== END 2025-02-20 18:06 | DRG 389 ==
LOC: 2 NORTH 21:16
PROVIDERS: Emergency Medicine; Hospitalist; ADMITTING PHYSICIAN Internal Medicine; ATTENDING PHYSICIAN Internal Medicine; CONSULT PHYSICIAN Internal Medicine Gastroenterology; EMERGENCY PHYSICIAN Student in an Organized Health Care Education/Training Program
DX: K56.41 Fecal impaction (principal); A09 Infectious gastroenteritis and colitis, unspecified; K52.89 Other specified noninfective gastroenteritis and colitis; K63.5 Polyp of colon; F03.90 Unspecified dementia, unspecified severity, without behavioral disturbance, psychotic disturbance, mood disturbance, and anxiety; I10 Essential (primary) hypertension; Z79.01 Long term (current) use of anticoagulants; Z79.899 Other long term (current) drug therapy; Z86.718 Personal history of other venous thrombosis and embolism; Z96.641 Presence of right artificial hip joint; E78.00 Pure hypercholesterolemia, unspecified; K57.30 Diverticulosis of large intestine without perforation or abscess without bleeding; N83.291 Other ovarian cyst, right side; K44.9 Diaphragmatic hernia without obstruction or gangrene
CPT/HCPCS: 74022; 74177; 80048; 80053; 82248; 83605; 83690; 85025; 85027; 87040; 87045; 87046; 87070; 87324; 87427; 87449; 93005; 96365; 96375; 99291; Q9967

== ENCOUNTER → 2025-04-10 17:40 | Outpatient (REF) | payer MEDICARE, OTHER, SELFPAY ==
[2025-04-11 11:50] LABS: Urine Character Slightly Cloudy (Clear)
[2025-04-11 12:08] LABS: Urine Red Blood Cell 0-2 /HPF (0-2); Urine White Cell 40-50 /HPF (0-5)
== END ==
LOC: OLABN 17:40
PROVIDERS: ATTENDING PHYSICIAN Student in an Organized Health Care Education/Training Program
DX: R41.0 Disorientation, unspecified (principal)
CPT/HCPCS: 81003; 81015; 87077; 87086

== ENCOUNTER → 2025-07-12 09:55 | Outpatient (REF) | payer MEDICARE, OTHER, SELFPAY | LOC: MRI 09:55 | PROVIDERS: ATTENDING PHYSICIAN Specialist; FAMILY PHYSICIAN Student in an Organized Health Care Education/Training Program | DX: F03.C4 Unspecified dementia, severe, with anxiety (principal) | CPT/HCPCS: 70551 ==